=== PATIENT | male | born 1970 | race Caucasian/White ===

== ENCOUNTER 2020-07-26 17:26 | Emergency (ER) | payer OTHER ==
[2020-07-26 18:23] LABS: BASOPHIL 0.6 % (0-2); EOSINOPHIL 2.4 % (0-5); HCT 46.7 % (42.0-52.0); HGB 15.8 g/dl (13.2-18.0); LYMPHOCYTE 21.5 % (15-48); MCH 30.5 pg (25.0-31.0); MCHC 33.8 g/dL (32.0-36.0); MCV 90.2 fL (78.0-100.0); MONOCYTE 11.2 % (0-12); MPV 8.5 fL (6.0-9.5); NRBC 0; PLT 241 K/uL (150-400); RBC 5.18 M/uL (4.70-6.00); WBC 6.3 K/uL (4.0-10.5)
[2020-07-26 18:37] LABS: CREATININE 0.94 mg/dL (0.67-1.17); POTASSIUM 3.9 mmol/L (3.5-5.1)
== END 2020-07-26 19:06 | disposition home or self-care (01) ==
LOC: FER 17:26
PROVIDERS: Emergency Medicine
DX: G43.909 Migraine, unspecified, not intractable, without status migrainosus (principal); I10 Essential (primary) hypertension; Z79.899 Other long term (current) drug therapy
CPT/HCPCS: 36415; 70450; 80048; 85025; 96372; J0780; J1885; J3030

== ENCOUNTER 2020-11-16 15:17 | Emergency (ER) | payer OTHER ==
[2020-11-16 15:45] LABS: BASOPHIL 0.7 % (0-2); HCT 45.2 % (42.0-52.0); HGB 16.1 g/dl (13.2-18.0); LYMPHOCYTE 16.2 % (15-48); MCH 31.9 pg (25.0-31.0); MCHC 35.6 g/dL (32.0-36.0); MCV 89.5 fL (78.0-100.0); MONOCYTE 11.7 % (0-12); MPV 8.5 fL (6.0-9.5); NRBC 0; PLT 235 K/uL (150-400); RBC 5.05 M/uL (4.70-6.00); RDW 11.9 % (11.5-14.0); WBC 7.1 K/uL (4.0-10.5)
[2020-11-16 16:20] LABS: BUN/CREAT RATIO (CALC) 15.5 RATIO; CREATININE 0.97 mg/dL (0.67-1.17); POTASSIUM 4.8 mmol/L (3.5-5.1)
[2020-11-16 16:48] LABS: ALBUMIN 3.7 g/dL (3.4-5.0); BILIRUBIN - DIRECT 0.1 mg/dL (0.00-0.20); BILIRUBIN - TOTAL 0.6 mg/dL (0.2-1.0); GLOBULIN (CALCULATION) 3.7 g/dL; TOTAL PROTEIN 7.4 g/dL (6.4-8.2)
[2020-11-16] MEDS ORDERED: PRINIVIL20 MG PO (16:58)
[2020-11-16] MEDS ORDERED: NAPROXEN500 MG PO (16:58)
== END 2020-11-16 17:18 | disposition home or self-care (01) ==
LOC: FER 15:17
PROVIDERS: Emergency Medicine
DX: R07.89 Other chest pain (principal); R91.1 Solitary pulmonary nodule; F17.200 Nicotine dependence, unspecified, uncomplicated; I10 Essential (primary) hypertension; Z79.899 Other long term (current) drug therapy
CPT/HCPCS: 36415; 71046; 80048; 80076; 82553; 84484; 85025; 93005